=== PATIENT | male | born 1955 | race Two or more races ===

== ENCOUNTER 2023-12-09 08:16 | Emergency (ER) | payer OTHER ==
[~2023-12-09] VITALS: Ht 180.3 cm; Wt 79.6 kg
[~2023-12-09 08:16] MED LIST: BENA5TAB9; GEMF-66; GLYB5TAB8; INSLANTI; METF-372; METH4PAK26; PRAVASTATIN SODIUM 40 MG TAB; TRAM50TA2
[2023-12-09 08:58] VITALS: BP 105/62; PULSE 76; RESP 14; TEMP 97.8; O2SAT 98
[2023-12-09] MEDS ORDERED: CEPH500C PO (09:05)
== END 2023-12-09 09:17 | disposition home or self-care (01) ==
LOC: ER 08:16
DX: S90.822A Blister (nonthermal), left foot, initial encounter (principal); L84 Corns and callosities; I10 Essential (primary) hypertension; E78.5 Hyperlipidemia, unspecified; E11.9 Type 2 diabetes mellitus without complications; Z79.899 Other long term (current) drug therapy; X58.XXXA Exposure to other specified factors, initial encounter; Y93.89 Activity, other specified; Y92.89 Other specified places as the place of occurrence of the external cause; Y99.8 Other external cause status
CPT/HCPCS: 10140